=== PATIENT | female | born 1985 | race Caucasian/White ===

== ENCOUNTER 2019-06-15 13:23 | Emergency (ER) | payer MEDICARE ==
--- NOTE | 2019-06-15 15:28 | RAD ---
Exam:3 views left foot HISTORY: Pain COMPARISON: None FINDINGS: Lisfranc alignment is maintained. Joint spaces are preserved. No fracture, cortical irregul arity or periosteal reaction. Hypertrophy and Achilles tendon insertion site IMPRESSION: No fracture
== END 2019-06-15 16:05 | disposition home or self-care (01) ==
LOC: MADERS 13:23
DX: M76.62 Achilles tendinitis, left leg (principal); M77.9 Enthesopathy, unspecified; F41.9 Anxiety disorder, unspecified; F32.9 Major depressive disorder, single episode, unspecified